=== PATIENT | male | born 1980 | race Caucasian/White ===

== ENCOUNTER → 2018-02-11 | Outpatient (CLI) | payer MEDICARE, OTHER ==
--- NOTE | 2018-02-11 12:09 | RADIOLOGY REPORT (SQ) ---
EXAM DESCRIPTION: CERV SP 3 VIEW OR LESS COMPLETED DATE/TIME: 02/11/2018 11:25 am REASON FOR STUDY: RADICULOPATHY, CERVICAL REGION M54.12 RADICULOPATHY, CERVICAL REGION COMPARISON: None. TECHNIQUE: Lateral flexion and extension radiographs of the spine. NUMBER OF VIEWS: Two views. LIMITATIONS: None. FINDINGS: Prior ACD C5- 6 and C6-7. About 2 mm anterolisthesis of C2 relative to C 3, C3 relative C 4, C4 relative to C5 in flexion which reduces in extension. OTHER: No other significant finding. IMPRESSION: Mild malalignment with flexion reduces in extension. TECHNICAL DOCUMENTATION: JOB ID: [id number] [employer]- All Rights Reserved Reading location - IP/workstation name: [email or web address]
== END ==
LOC: RAD 11:03
PROVIDERS: ATTEND Specialist
DX: M54.12 Radiculopathy, cervical region (principal)
CPT/HCPCS: 72040